=== PATIENT | female | born 1990 | race Caucasian/White ===

== ENCOUNTER 2016-12-22 11:57 | Emergency (ER) | payer OTHER ==
[2016-12-22 12:50] LABS: RAPID STREP SCREEN REAGENT QC YELLOW (YELLOW)
[2016-12-22 13:38] VITALS: BP 116/70
[2016-12-22] MEDS ORDERED: BENZONATATE 100 MG CAPSULE PO STA (13:39)
[2016-12-22] MEDS ORDERED: BENZOCAINE/MENTHOL LOZENGE MM STA (13:39)
[2016-12-22] MEDS ORDERED: BENZOCAINE/MENTHOL LOZENGE MM ONE (13:42)
[2016-12-22] MEDS ORDERED: BENZONATATE 100 MG CAPSULE PO ONE (13:42)
--- NOTE | 2016-12-22 13:42 | ED Physician Documentation ---
History of Present Illness - Stated complaint Stated Complaint: SORE THROAT/COUGH/FEVER - Chief complaint Chief Complaint: Heent - Additonal information Additional information: hx from pt 26 female fever congestion sore throat cough no travel sick contacts at work Review of Systems Constitutional: reports: Fever Throat: reports: Sore throat Respiratory: reports: Cough : denies: Now [facility] PAST MEDICAL HISTORY - Past Surgical History Past Surgical History: No - Present Medications Home Medications: Ambulatory Orders Medication Instructions Recorded Confirmed Albuterol Sulf [Ventolin Hfa 1 - 2 puffs INH Q4HR PRN #1 inhaler 05/22/16 Inhaler] Azithromycin [Zithromax] 250 mg PO DAILY #6 tablet 05/22/16 Control Pills 1 tab PO DAILY 05/22/16 Benzonatate [Tessalon] 100 mg PO TID PRN #20 capsule 12/22/16 guaiFENesin/DEXTROMETHORPHAN 10 ml PO Q6H PRN #120 ml 12/22/16 [Robitussin Dm] - Allergies Allergies/Adverse Reactions: Allergies Allergy/AdvReac Type Severity Reaction Status Date / Time No Known Drug Allergies Allergy Verified 05/22/16 09:59 - Social History Does the pt smoke?: No Smoking Status: Never smoker Does the pt drink ETOH?: No Does the pt have substance abuse?: No PD ED PE NORMAL - Vitals Vital signs reviewed: Yes - HEENT HEENT: Ears normal (dull but no erythema), Moist mucous membranes. No: Pharynx benign (erythema no exudate) - Neck Neck: Supple, no meningeal sign. No: No adenopathy (anterior no posterior) - Cardiac Cardiac: RRR - Respiratory Respiratory: No respiratory distress, Clear bilaterally Results - Vitals Vitals: Vital Signs - 24 hr 12/22/16 12/22/16 12:01 13:36 Temperature 36.8 C 36.8 C Heart Rate 88 81 Respiratory 16 16 Rate Blood Pressure 115/76 116/70 O2 Saturation 100 98 Oxygen O2 Source Room air - Labs Labs: Laboratory Tests 12/22/16 11:58 Group A Strep Rapid Negative Departure - Departure Disposition: Home, Self Care Clinical Impression: Viral URI Condition: Good Instructions: ED Viral Syndrome Prescriptions: guaiFENesin/DEXTROMETHORPHAN [Robitussin Dm] 10 ml PO Q6H PRN #120 ml PRN Reason: Cough Benzonatate [Tessalon] 100 mg PO TID PRN #20 capsule PRN Reason: to ease cough Comments: The rapid strep was negative We will call you if the throat culture is positive. In the mean time I have prescribed medications to ease your cough. You can use throat lozenges and motrin as needed for the throat pain Forms: Activity restrictions
== END 2016-12-22 13:50 | disposition home or self-care (01) ==
LOC: ED 11:57
DX: J06.9 Acute upper respiratory infection, unspecified (principal); Z79.51 Long term (current) use of inhaled steroids
CPT/HCPCS: 87070; 87430; 99283; A9270

== ENCOUNTER 2017-02-10 23:51 | Emergency (ER) | payer OTHER ==
[2017-02-11 00:02] VITALS: BP 145/86
--- NOTE | 2017-02-11 00:48 | ED Physician Documentation ---
PD HPI BACK INJURY - Stated complaint Stated Complaint: BACK PAIN - History obtained from History obtained from: Patient - History of Present Illness Location: Right, Lower Type of injury: Twist (she was lifting load of dishes at work with a twisting motion. Pain in lower back.) Where injury occurred: Work Timing - details: Abrupt onset, Still present Quality: Similar to prior episodes Improved by: Rest Worsened by: Moving, Palpating Associated symptoms: No: Weakness, Numbness, Incontinent of urine Similar symptoms before: No: Has not had sx before Review of Systems Constitutional: denies: Fever, Chills : denies: Incontinent Neurologic: denies: Focal weakness, Numbness PD PAST MEDICAL HISTORY - Past Medical History Cardiovascular: None Respiratory: None Neuro: None Musculoskeletal: None - Past Surgical History Past Surgical History: No - Present Medications Home Medications: Ambulatory Orders Medication Instructions Recorded Confirmed Control Pills 1 tab PO DAILY 05/22/16 02/10/17 Hydrocodone/Acetaminophen [[place] 1 each PO Q6H PRN #20 tablet 02/11/17 5-325 Tablet] Methocarbamol [Robaxin] 500 mg PO Q6H PRN #25 tablet 02/11/17 Naproxen [Naprosyn] 500 mg PO BID #20 tablet 02/11/17 - Allergies Allergies/Adverse Reactions: Allergies Allergy/AdvReac Type Severity Reaction Status Date / Time No Known Drug Allergies Allergy Verified 02/10/17 23:56 - Social History Does the pt smoke?: No Smoking Status: Never smoker Does the pt drink ETOH?: No Does the pt have substance abuse?: No - Immunizations Immunizations are current?: Yes PD ED PE NORMAL - Vitals Vital signs reviewed: Yes - General General: Alert and oriented X 3, Well developed/nourished, Other (holding back stiffly.) - Abdomen Abdomen: Soft, Non tender - Back Back: No CVA TTP, No spinal TTP (tender right of midline in muscles. ) - Derm Derm: Normal color, Warm and dry - Extremities Extremities: No tenderness to palpate, Normal ROM s pain - Neuro Neuro: Alert and oriented X 3, No motor deficit, No sensory deficit Results - Vitals Vitals: Vital Signs - 24 hr 02/10/17 23:52 Temperature 36.7 C Heart Rate 82 Respiratory 18 Rate Blood Pressure 145/86 H O2 Saturation 100 Oxygen O2 Source Room air PD MEDICAL DECISION MAKING - ED course Complexity details: considered differential, d/w patient Departure - Departure Disposition: 01 Home, Self Care Clinical Impression: Lumbar strain Qualifiers: Encounter type: initial encounter Qualified Code(s): S39.012A - Strain of muscle, fascia and tendon of lower back, initial encounter Condition: Stable Record reviewed to determine appropriate education?: Yes Instructions: ED Sprain Strain Lumbar Prescriptions: Naproxen [Naprosyn] 500 mg PO BID #20 tablet Hydrocodone/Acetaminophen [[place] 5-325 Tablet] 1 each PO Q6H PRN #20 tablet PRN Reason: Pain Methocarbamol [Robaxin] 500 mg PO Q6H PRN #25 tablet PRN Reason: Spasms Comments: Heat and gentle stretching of the back muscles. Naproxen or Ibuprofen twice daily for 7-10 days. Robaxin muscle relaxant for spasms and stiffness. Add Tylenol or hydrocodone as needed for pains. Off work for 2-3 days, then limited lifting for another few days. Forms: Activity restrictions Discharge Date/Time: 02/11/17 01:41
[2017-02-11] MEDS ORDERED: ONDANSETRON ODT 4 MG TABLET TL STA (01:16)
[2017-02-11] MEDS ORDERED: HYDROmorphone 1 MG/ML SYRINGE IM STA (01:16)
[2017-02-11] MEDS ORDERED: HYDROcod/ACET 5/325 Prepack 6 PO ONE ×2 (01:17→01:20)
[2017-02-11] MEDS ORDERED: diazePAM 5 MG TABLET PO STA (01:17)
[2017-02-11] MEDS ORDERED: ONDANSETRON ODT 4 MG TABLET ONE (01:20)
[2017-02-11] MEDS ORDERED: HYDROmorphone 1 MG/ML SYRINGE ONE (01:21)
[2017-02-11] MEDS ORDERED: diazePAM 5 MG TABLET PO ONE (01:22)
== END 2017-02-11 01:41 | disposition home or self-care (01) ==
LOC: ED 23:51
DX: S39.012A Strain of muscle, fascia and tendon of lower back, initial encounter (principal); X50.0XXA Overexertion from strenuous movement or load, initial encounter; Y92.89 Other specified places as the place of occurrence of the external cause; Y99.0 Civilian activity done for income or pay
CPT/HCPCS: 1040M; 96372; 99283; A9270; J1170; Q0162